=== PATIENT | female | born 2000 | race American Indian/Alaskan Native ===

== ENCOUNTER 2018-08-31 14:19 | Inpatient (IN) | payer MEDICAID ==
--- NOTE | 2018-08-31 18:03 | Ultrasound Report ---
ULTRASOUND BIOPHYSICAL PROFILE INDICATION / CLINICAL INFORMATION: post dates. COMPARISON: None available. FINDINGS: BREATHING MOVEMENT = 2 GROSS BODY MOVEMENT = 2 TONE = 2 QUALITATIVE AMNIOTIC FLUID VOLUME = 2 TOTAL BIOPHYSICAL SCORE = 10/04 AMNIOTIC FLUID INDEX (cm) = 8.6 PRESENTATION: Cephalic. HEART RATE (beats per minute): 154 IMPRESSION: 1. biophysical profile = 10/04 Signer Name: Horacio Abbasi MD Signed: 08/31/2018 5:59 PM Workstation Name: [place] [id number]
--- NOTE | 2018-08-31 18:03 | Ultrasound Report ---
US OB limited INDICATION: post dates. COMPARISON: None available. FINDINGS: The amniotic fluid index appears normal, measuring 8.6 cm total. heart rate measures 154 bpm. F etal position is cephalic. IMPRESSION: Normal MANJEET. Signer Name: Horacio Abbasi MD Signed: 08/31/2018 5:58 PM Workstation Name: [id number]
[2018-08-31] MEDS ORDERED: BRETHINE SUB-Q PRN (21:25)
[2018-08-31] MEDS ORDERED: BRETHINE IVP PRN (21:25)
[2018-08-31] MEDS ORDERED: XYLOCAINE 2% INFILTRATI ONE (21:25)
--- NOTE | 2018-08-31 21:38 | History and Physical Report ---
History of Present Illness Date of examination: 08/31/18 Date of admission: 08/31/2018 Chief complaint: Elevated blood pressure History of present illness: 18 year old female at 40 weeks, 2 days gestation being admitted for elevated blood pressures past her due date. Patient has received care at [facility] and records were able to be accessed. LMP 11/07/17. EDC 08/29/18. significant for the following: transfer-in from [place]. labs are as follows: AB+, antibody screen negative, rubella immune, HIV negative, RPR nonreactive, hepatitis B surface antigen negative, quad screen negative, GC negative, CT negative, trichomonas negative, GBS negative, 1 hour sugar test 110, urine culture negative. Past History Past Medical History: no pertinent history Past Surgical History: D&C (after molar ), other (wisdom teeth extraction) [facility] History: denies: abnormal PAP smear, chlamydia, gonorrhea, hepatitis B, hepatitis C, herpes, HIV, syphilis, trichomonas Family/Genetic History: none Social history: single, lives with family, full code. denies: smoking, alcohol abuse, IV drug use - Obstetrical History Expected Date of Delivery: 08/29/18 Actual Gestation: 40 Week(s) 2 Day(s) : 2 Para: 0 Hx # Term Pregnancies: 0 Number of Pregnancies: 0 Spontaneous Abortions: 1 Induced : 0 Number of Living Children: 0 Medications and Allergies Allergies Allergy/AdvReac Type Severity Reaction Status Date / Time No Known Allergies Allergy Verified 08/31/18 11:37 Active Meds: Active Medications Ephedrine Sulfate (Ephedrine Sulfate) 10 mg IV Q2M PRN PRN Reason: Hypotension Oxytocin/Sodium Chloride (Pitocin/Ns 20 Unit/1000ml Drip) 20 units in 1,000 mls @ 125 mls/hr IV DIRECT RUBIN Oxytocin/Sodium Chloride (Pitocin/Ns 30 Unit/500ml) 30 units in 500 mls @ 0 mls/hr IV TITR RUBIN; Protocol Lactated Ringer's (Lactated Ringers) 1,000 mls @ 125 mls/hr IV DIRECT RUBIN Lidocaine (Xylocaine 2%) 20 ml INFILTRATI ONCE ONE Stop: 08/31/18 21:26 Terbutaline Sulfate (Brethine) 0.25 mg SUB-Q ONCE PRN PRN Reason: Hyperstimulation/Hypertonicity Terbutaline Sulfate (Brethine) 0.25 mg IVP ONCE PRN PRN Reason: Hyperstimulation/Hypertonicity Review of Systems All systems: negative (irregular mild contractions) - Vital Signs Vital signs: Vital Signs Pulse Pulse Ox 77 96 08/31/18 16:46 08/31/18 16:46 Temp Pulse Resp BP Pulse Ox 99.1 F 81 20 139/91 99 08/31/18 16:48 08/31/18 21:36 08/31/18 16:48 08/31/18 21:31 08/31/18 21:36 - Physical Exam Abdomen: Positive: normal appearance, soft. Negative: distention, tenderness, guarding, rigidity Genitourinary (Female): Positive: normal external genitalia, normal perenium. Negative: perineal/vulvar lesions Vagina: Positive: normal moisture Uterus: Positive: enlarged. Negative: tender Anus/Rectum: Positive: normal perianal skin Extremities: Positive: normal. Negative: tenderness - Obstetrical FHR: category 1 Uterine Contraction Monitor Mode: External Cervical Dilatation: 1.5 Cervical Effacement Percentage: 50 station: -4 Uterine Contraction Pattern: Irregular Uterine Contraction Intensity: Mild Results Result Diagrams: 08/31/18 21:55 08/31/18 21:54 All other labs normal. Assessment and Plan A: at 40 2/7 weeks gestation. Elevated blood pressure. GBS negative. P: Admit. Preeclamptic labs. Continuous EFM. Pitocin induction of labor. Discussed with patient risks and benefits of Pitocin induction of labor. Patient consented to Pitocin induction of labor. See orders.
[2018-08-31 22:31] LABS: Basophils % (Auto) 0.2 % (0.0-1.8); Eosinophils % (Auto) 0.4 % (0.0-4.3); Hematocrit 33.1 % (30.3-42.9); Hemoglobin 11.1 gm/dl (10.1-14.3); Lymphocytes # (Auto) 3.3 K/mm3 (1.2-5.4); Lymphocytes % (Auto) 45.1 % (13.4-35.0); Mean Corpuscular HGB Conc 34 % (30-34); Mean Corpuscular Volume 93 fl (79-97); Monocytes # (Auto) 0.6 K/mm3 (0.0-0.8); Monocytes % (Auto) 7.7 % (0.0-7.3); Platelet Count 334 K/mm3 (140-440); Red Blood Count 3.57 M/mm3 (3.65-5.03); Red Cell Distribution Width 13.7 % (13.2-15.2)
[2018-08-31 22:46] LABS: Alanine Aminotransferase 11 units/L (7-56); Albumin 3.4 g/dL (3.9-5); BUN/Creatinine Ratio 10; Blood Urea Nitrogen 7 mg/dL (7-17); Calcium 9.2 mg/dL (8.4-10.2); Hemolysis Index 0; Uric Acid 5.4 mg/dL (3.5-7.6)
[2018-09-01] MEDS: PITOCin/NS 30 UNIT/500ML 30 UNITS/500 ML BAG IV SCH ×2 (00:49→19:26)
[2018-09-01] MEDS: LACTATED RINGERS 1,000 ML IV SCH ×2 (00:51→15:06)
[2018-09-01 07:50] LABS: Bacteria,Urine 1+ /HPF (Negative); Bilirubin,Urine NEG (Negative); Blood,Urine NEG (Negative); Color,Urine Yellow (Yellow); Protein,Urine <15 mg/dL mg/dL (Negative)
--- NOTE | 2018-09-01 07:59 | Progress Note ---
Assessment and Plan A: at 40 weeks, 3 days gestation. Elevated blood pressure. Induction of labor. GBS negative. P: Continuous EFM. Induction of labor with Pitocin. Subjective - Subjective Date of service: 09/01/18 Principal diagnosis: at 40 weeks, 3 days gestation; elevated blood pressure Interval history: IOL due to elevated blood pressures at 40 weeks, 3 days gestation. Patient denies headache, visual disturbance, or swelling. Had low dose Pitocin overnight for cervical ripening. Patient denies vaginal bleeding or leaking of fluid. Patient reports active movement. Patient reports: movement normal, contractions, no new complaints, no loss of fluid, no vaginal bleeding Objective - Vital Signs Vital Signs: Vital Signs - 12hr 08/31/18 08/31/18 08/31/18 20:00 20:01 20:05 Temperature Pulse Rate 78 81 82 Respiratory Rate Blood Pressure 140/86 O2 Sat by Pulse 97 98 Oximetry 08/31/18 08/31/18 08/31/18 20:06 20:10 20:12 Temperature Pulse Rate 77 81 82 Respiratory Rate Blood Pressure 147/93 140/85 O2 Sat by Pulse 98 Oximetry 08/31/18 08/31/18 08/31/18 20:15 20:16 20:20 Temperature Pulse Rate 76 77 86 Respiratory Rate Blood Pressure 142/89 O2 Sat by Pulse 98 99 Oximetry 08/31/18 08/31/18 08/31/18 20:22 20:25 20:27 Temperature Pulse Rate 90 88 74 Respiratory Rate Blood Pressure 162/81 146/88 O2 Sat by Pulse 97 Oximetry 08/31/18 08/31/18 08/31/18 20:30 20:31 20:35 Temperature Pulse Rate 84 80 96 H Respiratory Rate Blood Pressure 152/89 O2 Sat by Pulse 98 100 Oximetry 08/31/18 08/31/18 08/31/18 20:37 20:41 20:42 Temperature Pulse Rate 193 H 101 H 106 H Respiratory Rate Blood Pressure 143/99 160/101 O2 Sat by Pulse 99 Oximetry 08/31/18 08/31/18 08/31/18 20:46 20:47 20:51 Temperature Pulse Rate 94 H 92 H 89 Respiratory Rate Blood Pressure 154/85 O2 Sat by Pulse 100 90 98 Oximetry 08/31/18 08/31/18 08/31/18 20:52 20:56 20:58 Temperature Pulse Rate 90 82 75 Respiratory Rate Blood Pressure 156/88 135/91 O2 Sat by Pulse 100 Oximetry 08/31/18 08/31/18 08/31/18 21:01 21:02 21:06 Temperature Pulse Rate 73 71 79 Respiratory Rate Blood Pressure 142/86 144/88 O2 Sat by Pulse 99 99 Oximetry 08/31/18 08/31/18 08/31/18 21:11 21:12 21:16 Temperature Pulse Rate 76 74 78 Respiratory Rate Blood Pressure 140/86 O2 Sat by Pulse 100 85 Oximetry 08/31/18 08/31/18 08/31/18 21:17 21:21 21:22 Temperature Pulse Rate 74 75 78 Respiratory Rate Blood Pressure 135/88 137/90 O2 Sat by Pulse 94 93 Oximetry 08/31/18 08/31/18 08/31/18 21:26 21:27 21:31 Temperature Pulse Rate 76 73 73 Respiratory Rate Blood Pressure 135/89 139/91 O2 Sat by Pulse 94 93 97 Oximetry 08/31/18 08/31/18 08/31/18 21:32 21:36 21:37 Temperature Pulse Rate 76 81 80 Respiratory Rate Blood Pressure 132/97 O2 Sat by Pulse 93 99 Oximetry 08/31/18 08/31/18 08/31/18 21:40 21:42 21:43 Temperature Pulse Rate 78 81 81 Respiratory Rate Blood Pressure 133/95 O2 Sat by Pulse 90 99 Oximetry 08/31/18 08/31/18 08/31/18 21:47 21:52 21:57 Temperature Pulse Rate 71 87 85 Respiratory Rate Blood Pressure 139/93 139/88 154/81 O2 Sat by Pulse 99 99 98 Oximetry 08/31/18 08/31/18 08/31/18 22:02 22:24 22:29 Temperature Pulse Rate 79 91 H 85 Respiratory Rate Blood Pressure 142/78 O2 Sat by Pulse 97 98 97 Oximetry 08/31/18 08/31/18 08/31/18 22:34 22:38 22:44 Temperature Pulse Rate 80 87 85 Respiratory Rate Blood Pressure O2 Sat by Pulse 97 98 99 Oximetry 08/31/18 08/31/18 08/31/18 22:49 22:54 22:59 Temperature Pulse Rate 83 79 76 Respiratory Rate Blood Pressure O2 Sat by Pulse 98 96 97 Oximetry 08/31/18 08/31/18 08/31/18 23:04 23:09 23:13 Temperature Pulse Rate 78 79 71 Respiratory Rate Blood Pressure O2 Sat by Pulse 97 97 97 Oximetry 08/31/18 08/31/18 08/31/18 23:19 23:24 23:29 Temperature Pulse Rate 75 92 H 92 H Respiratory Rate Blood Pressure O2 Sat by Pulse 98 96 95 Oximetry 08/31/18 08/31/18 08/31/18 23:34 23:39 23:44 Temperature Pulse Rate 74 80 82 Respiratory Rate Blood Pressure O2 Sat by Pulse 98 97 97 Oximetry 08/31/18 08/31/18 08/31/18 23:49 23:50 23:53 Temperature Pulse Rate 89 77 90 Respiratory Rate Blood Pressure 134/83 O2 Sat by Pulse 97 98 Oximetry 08/31/18 09/01/18 09/01/18 23:59 00:04 00:38 Temperature Pulse Rate 77 84 85 Respiratory Rate Blood Pressure 143/90 O2 Sat by Pulse 97 97 Oximetry 09/01/18 09/01/18 09/01/18 00:52 01:03 01:08 Temperature 97.5 F L Pulse Rate 77 78 Respiratory 18 Rate Blood Pressure 136/88 139/88 O2 Sat by Pulse Oximetry 09/01/18 09/01/18 09/01/18 02:19 03:19 04:19 Temperature Pulse Rate 97 H 97 H 95 H Respiratory Rate Blood Pressure 132/68 119/60 111/64 O2 Sat by Pulse Oximetry 09/01/18 09/01/18 09/01/18 05:00 05:18 06:18 Temperature 97.5 F L Pulse Rate 71 76 Respiratory 16 Rate Blood Pressure 106/59 116/64 O2 Sat by Pulse Oximetry - Exam Abdomen: Present: normal appearance, soft. Absent: distention, tenderness, guarding, rigidity Uterus: Present: normal, fundal height above umbilicus FHR: category 1 Uterine Contraction Monitor Mode: External Uterine Contraction Pattern: Irregular Uterine Contraction Intensity: Mild Extremities: normal - Labs Labs: Abnormal Labs 08/31/18 08/31/18 21:54 21:55 RBC 3.57 L Lymph % (Auto) 45.1 H Nobles % (Auto) 7.7 H Carbon Dioxide 21 L Alkaline Phosphatase 426 H Lactate Dehydrogenase 184 H Albumin 3.4 L Laboratory Results - last 24 hr 08/31/18 08/31/1819 21:50 21:54 21:55 WBC 7.3 RBC 3.57 L Hgb 11.1 Hct 33.1 MCV 93 MCH 31 MCHC 34 RDW 13.7 Plt Count 334 Lymph % (Auto) 45.1 H [place]les % (Auto) 7.7 H Eos % (Auto) 0.4 Baso % (Auto) 0.2 Lymph # 3.3 Nobles # 0.6 Eos # 0.0 Baso # 0.0 Seg Neutrophils % 46.6 Seg Neutrophils # 3.4 Sodium 137 Potassium 3.9 Chloride 103.1 Carbon Dioxide 21 L Anion Gap 17 BUN 7 Creatinine 0.7 Estimated GFR > 60 BUN/Creatinine Ratio 10 Glucose 72 Uric Acid 5.4 Calcium 9.2 Total Bilirubin 0.40 AST 18 ALT 11 Alkaline Phosphatase 426 H Lactate Dehydrogenase 184 H Total Protein 6.9 Albumin 3.4 L Albumin/Globulin Ratio 1.0 Urine Color Urine Turbidity Urine pH Ur Specific Mcdonough Urine Protein Urine Glucose (UA) Urine Ketones Urine Blood Urine Nitrite Urine Bilirubin Urine Urobilinogen Ur Leukocyte Esterase Urine WBC (Auto) Urine RBC (Auto) U Epithel Cells (Auto) Urine Bacteria (Auto) Blood Type AB POSITIVE Antibody Screen Negative 09/01/18 07:21 WBC RBC Hgb Hct MCV MCH MCHC RDW Plt Count Lymph % (Auto) Nobles % (Auto) Eos % (Auto) Baso % (Auto) Lymph # Nobles # Eos # Baso # Seg Neutrophils % Seg Neutrophils # Sodium Potassium Chloride Carbon Dioxide Anion Gap BUN Creatinine Estimated GFR BUN/Creatinine Ratio Glucose Uric Acid Calcium Total Bilirubin AST ALT Alkaline Phosphatase Lactate Dehydrogenase Total Protein Albumin Albumin/Globulin Ratio Urine Color Yellow Urine Turbidity Clear Urine pH 6.0 Ur Specific Mcdonough 1.015 Urine Protein <15 mg/dl Urine Glucose (UA) Neg Urine Ketones Tr Urine Blood Neg Urine Nitrite Neg Urine Bilirubin Neg Urine Urobilinogen 2.0 Ur Leukocyte Esterase Sm Urine WBC (Auto) 3.0 Urine RBC (Auto) 1.0 U Epithel Cells (Auto) 4.0 Urine Bacteria (Auto) 1+ Blood Type Antibody Screen
--- NOTE | 2018-09-01 15:49 | Event Note ---
Date: 09/01/18 SVE 2-3.
[2018-09-01] MEDS: PITOCin/NS 20 UNIT/1000ML DRIP 20 UNITS/1,000 ML BAG IV SCH (19:24)
[2018-09-02] MEDS ORDERED: LACTATED RINGERS 1,000 ML IV SCH (01:00)
[2018-09-02] MEDS ORDERED: SUBLIMAZE IV ONE ×3 (05:28→12:05)
[2018-09-02] MEDS ORDERED: APRESOLINE IV ONE (05:28)
--- NOTE | 2018-09-02 05:47 | Event Note ---
Date: 09/02/18 SVE /-2. Patient denies headache, visual disturbance, nausea or vomiting, epigastric pain. Several elevated blood pressures noted. Hydralazine ordered. Fentanyl ordered for pain. Category 1 heart rate tracing.
[2018-09-02] MEDS ORDERED: ZOFRAN ONE (10:00)
--- NOTE | 2018-09-02 11:06 | Progress Note ---
Assessment and Plan A: at 40 weeks, 4 days gestation. Elevated blood pressure. P: Continue Pitocin induction of labor. Labetalol 200 mg po BID. Continuous EFM. Consulted with Dr. Jensen re: patient's BP elevations and he reviewed BPs on patient's chart. Subjective - Subjective Date of service: 09/02/18 Principal diagnosis: at 40 weeks, 4 days gestation; elevated blood pressure Interval history: IOL due to elevated blood pressures at 40 weeks, 4 days gestation. Patient denies headache, visual disturbance, or swelling. Patient denies vaginal bleeding or leaking of fluid. Patient reports active movement. Labetalol po has been ordered for patient. Patient reports: movement normal, contractions, no new complaints, no loss of fluid, no vaginal bleeding Objective - Vital Signs Vital Signs: Vital Signs - 12hr 09/01/18 09/02/18 09/02/18 23:18 00:20 01:18 Pulse Rate 75 76 70 Blood Pressure 131/80 137/65 119/64 09/02/18 09/02/18 09/02/18 02:19 03:18 04:19 Pulse Rate 75 68 73 Blood Pressure 122/65 128/69 152/102 09/02/18 09/02/18 09/02/18 04:59 05:20 05:24 Pulse Rate 72 69 75 Blood Pressure 168/96 163/103 157/93 09/02/18 09/02/18 09/02/18 05:35 05:47 05:57 Pulse Rate 83 80 69 Blood Pressure 141/73 139/71 141/67 09/02/18 09/02/18 09/02/18 06:08 06:18 06:37 Pulse Rate 67 67 72 Blood Pressure 128/66 123/74 129/60 09/02/18 09/02/18 09/02/18 06:56 06:58 07:07 Pulse Rate 68 72 75 Blood Pressure 134/76 136/73 150/79 09/02/18 09/02/18 09/02/18 07:17 07:35 07:48 Pulse Rate 76 64 74 Blood Pressure 135/70 123/68 123/65 09/02/18 09/02/18 09/02/18 08:04 08:19 08:33 Pulse Rate 71 76 73 Blood Pressure 120/59 142/69 146/80 09/02/18 09/02/1819 08:50 09:03 09:19 Pulse Rate 88 78 82 Blood Pressure 146/78 146/84 150/84 09/02/18 09/02/18 09/02/18 09:33 09:49 09:52 Pulse Rate 84 76 67 Blood Pressure 145/97 162/87 158/88 09/02/18 09/02/18 09/02/18 10:04 10:33 10:49 Pulse Rate 116 H 69 81 Blood Pressure 131/92 136/82 150/86 - Exam Abdomen: Present: normal appearance, soft. Absent: distention, tenderness, guarding, rigidity Uterus: Present: normal, fundal height above umbilicus. Absent: tenderness FHR: category 1 Uterine Contraction Monitor Mode: External Cervical Dilatation: 3 Cervical Effacement Percentage: 95 station: -2 Uterine Contraction Pattern: Regular Uterine Contraction Intensity: Moderate Extremities: normal - Labs Labs: Abnormal Labs 08/31/18 08/31/18 21:54 21:55 RBC 3.57 L Lymph % (Auto) 45.1 H Braxton % (Auto) 7.7 H Carbon Dioxide 21 L Alkaline Phosphatase 426 H Lactate Dehydrogenase 184 H Albumin 3.4 L Laboratory Results - last 24 hr 08/31/18 21:43 RPR Nonreactive
--- NOTE | 2018-09-02 14:35 | Event Note ---
Date: 09/02/18 SVE 4.5/95/-1/BBOW. Patient requests epidural.
[2018-09-02] MEDS ORDERED: MARCAINE 0.25% INFILTRATI ONE (15:20)
[2018-09-02] MEDS ORDERED: SUBLIMAZE ONE (15:20)
[2018-09-02] MEDS ORDERED: NARCAN 2 MG/2 ML IV PRN (15:44)
--- NOTE | 2018-09-02 15:44 | Anesthesia Consultation ---
Anesthesia Consult and Med Hx Date of service: 09/02/18 - Airway Anesthetic Teeth Evaluation: Good ROM Head & Neck: Adequate Mental/Hyoid Distance: Adequate Mallampati Class: Class II Intubation Access Assessment: Good - Pulmonary Exam CTA: Yes - Cardiac Exam Cardiac Exam: RRR - Pre-Operative Health Status ASA Pre-Surgery Classification: ASA2 Proposed Anesthetic Plan: Epidural - Pulmonary Hx Asthma: No - Cardiovascular System Hx Hypertension: No - Central Nervous System Hx Seizures: No Hx Psychiatric Problems: No - Endocrine Hx Renal Disease: No Hx Hypothyroidism: No Hx Hyperthyroidism: No - Hematic Hx Anemia: No Hx Sickle Cell Disease: No - Other Systems Hx Alcohol Use: No
[2018-09-02] MEDS: fentaNYL-BUPIV 2 MCG/ML-0.125% 200 MCG/100 ML BAG EPIDURAL SCH ×2 (16:10→23:03)
[2018-09-02] MEDS ORDERED: ZOFRAN IV ONE (18:17)
--- NOTE | 2018-09-02 18:23 | Event Note ---
Date: 09/02/18 SVE 7/100/-1/bulging forebag. Pt. with nausea and vomiting, one episode. IV Zofran ordered. Patient denies headache or visual disturbance. Repeat labs ordered. Advised nurse to increase Pitocin as she has only gone up to 4 milliunits per minute. Category 1 heart rate tracing.
[2018-09-02] MEDS: NORMODYNE PO SCH ×2 (18:37→22:35)
[2018-09-02 19:47] LABS: Alanine Aminotransferase 10 units/L (7-56); Albumin 3.5 g/dL (3.9-5); BUN/Creatinine Ratio 7; Blood Urea Nitrogen 5 mg/dL (7-17); Calcium 9.3 mg/dL (8.4-10.2); Hemolysis Index 0
[2018-09-02] MEDS ORDERED: TYLENOL PO ONE (23:10)
[2018-09-02] MEDS ORDERED: AMPICILLIN/NS 2 GM/100 ML 2 GM/100 ML BAG IV ONE (23:11)
--- NOTE | 2018-09-03 00:16 | Event Note ---
Date: 09/03/18 Cervix is 9 cm and fetus is at 0 station. Maternal temp. 100.1. Tylenol po ordered. Ampicillin and Gentamicin ordered. FHR normal baseline rate with moderate variability and no decelerations. Consulted with Dr. Jensen re: patient, prolonged IOL, cervical exam, maternal temperature, and interventions taken. Dr. Jensen states it is OK to proceed with labor and attempt vaginal as long as no tachycardia. Discussed this plan with patient and family.
[2018-09-03] MEDS ORDERED: GENTAMICIN/NS 100 MG/100 ML 100 MG/100 ML BAG IV SCH (01:00)
[2018-09-03] MEDS: PITOCin/NS 20 UNIT/1000ML DRIP 20 UNITS/1,000 ML BAG IV SCH ×2 (02:13→03:32)
[2018-09-03] MEDS ORDERED: DULCOLAX PR PRN (02:34)
[2018-09-03] MEDS ORDERED: TUCKS PAD TP PRN (02:34)
[2018-09-03] MEDS ORDERED: LANSINOH TP PRN (02:34)
[2018-09-03] MEDS ORDERED: MILK OF MAGNESIA PO PRN (02:34)
[2018-09-03] MEDS ORDERED: NORCO 5/325 PO PRN (02:34)
--- NOTE | 2018-09-03 02:53 | Procedure Note ---
OB Delivery Note - Delivery Date of Delivery: 09/03/18 Surgeon: MONO JENSEN Computer Terminal Operator: VENUS KINCAID Estimated blood loss: other (250 cc) - Vaginal Delivery presentation: vertex Delivery position: OA Intrapartum events: mult.variable deceleratio Delivery induction: AROM Delivery monitor: external FHT, external uterine Route of delivery: vacuum extraction Indicators for instrumentation: nonreassuring FHR tracing Delivery placenta: spontaneous Delivery cord: 3 umbilical vessels Episiotomy: midline Delivery laceration: 2nd degree Delivery repair: vicryl Anesthesia: epidural Delivery comments: Vacuum assisted vaginal delivery of liveborn male infant weighing 6 lb[address] 7.[address] Wes Jensen at 01:52 due to deep variable FHR decelerations with pushing. Baby placed skin to skin with mom immediately after delivery. 3 vessel cord double clamped and cut (cut by FOB). Spontaneous delivery of intact placenta and membranes at 01:55. Pitocin to IV fluids after delivery of placenta. Fundus firm and midline. EBL 250 cc. 2nd degree midline episiotomy repaired with 2-0 vicryl. No other lacerations noted. Vaginal sweep negative. Sponge count correct. Mother and baby stable in birthing room.
[2018-09-03] MEDS ORDERED: SODIUM CHLORIDE FLUSH SYRINGE 10 ML IV PRN (03:00)
[2018-09-03] MEDS ORDERED: AMPICILLIN/NS 1 GM/50 ML 1 GM/50 ML BAG IV SCH (03:19)
[2018-09-03] MEDS ORDERED: PITOCin/NS 20 UNIT/1000ML DRIP 20,000 MILLIUNITS/1,000 ML BAG IV ONE (03:34)
[2018-09-03] MEDS: IBUPROFEN PO SCH ×4 (05:04→23:46)
[2018-09-03] MEDS: AMPICILLIN/NS 2 GM/100 ML 2 GM/100 ML BAG IV SCH ×2 (05:54→12:30)
--- NOTE | 2018-09-03 06:40 | Post Anesthesia Evaluation ---
- Post Anesthesia Evaluation Patient Participated: Yes Airway Patent: Yes Stable Respiratory Function: Yes Nausea/Vomiting: No Temp > 96.8F: Yes Pain Manageable: Yes Adequeate Hydration: Yes Anesthesia Complications: No Block Receding Appropriately: Yes Patient on Ventilator: No
[2018-09-03] MEDS: NORMODYNE PO SCH ×2 (10:00→21:36)
[2018-09-03 11:18] LABS: Hematocrit 29.1 % (30.3-42.9); Hemoglobin 9.7 gm/dl (10.1-14.3); Mean Corpuscular HGB Conc 33 % (30-34); Mean Corpuscular Volume 92 fl (79-97); Platelet Count 289 K/mm3 (140-440); Red Blood Count 3.17 M/mm3 (3.65-5.03)
[2018-09-03 13:34] LABS: Basophils % (Manual) 0 % (0.0-1.8); Eosinophils % (Manual) 0 % (0.0-4.3); Platelet Estimate Consistent w Auto; RBC Morphology Normal; Total Cells Counted 100
[2018-09-03 23:37] LABS: Basophils % (Auto) 0.3 % (0.0-1.8); Eosinophils % (Auto) 0.2 % (0.0-4.3); Hematocrit 27.5 % (30.3-42.9); Hemoglobin 9.2 gm/dl (10.1-14.3); Lymphocytes # (Auto) 4.1 K/mm3 (1.2-5.4); Lymphocytes % (Auto) 23.6 % (13.4-35.0); Mean Corpuscular HGB Conc 33 % (30-34); Mean Corpuscular Volume 93 fl (79-97); Monocytes # (Auto) 1.2 K/mm3 (0.0-0.8); Platelet Count 277 K/mm3 (140-440); Red Blood Count 2.97 M/mm3 (3.65-5.03); Red Cell Distribution Width 14.1 % (13.2-15.2)
[2018-09-04] MEDS: TRIMOX PO SCH ×2 (00:50→05:55)
[2018-09-04] MEDS ORDERED: CLEOCIN PO SCH (01:00)
[2018-09-04] MEDS: IBUPROFEN PO SCH ×4 (05:55→23:40)
[2018-09-04] MEDS ORDERED: BOOSTRIX IM ONE (06:00)
--- NOTE | 2018-09-04 09:45 | Progress Note ---
Assessment and Plan - Patient Problems (1) Vacuum extraction, delivered, current hospitalization Current Visit: Yes Status: Acute Plan to address problem: Continue routine PP orders Keep laceration site dry and intact Anticipate d/c home in 24 hours (2) Anemia Current Visit: Yes Status: Acute Qualifiers: Anemia type: other cause Other causes of anemia: acute posthemorrhagic Qualified Code(s): D62 - Acute posthemorrhagic anemia Plan to address problem: Ferrous sulfate 325mg po BID Increase iron rich foods Continue daily oral iron supplementation after d/c home Subjective - Subjective Date of service: 09/04/18 Principal diagnosis: ; Anemia Interval history: See admission H & P, OB delivery summary and PP progress notes Patient reports: appetite normal, voiding normally, pain well controlled, flatus, ambulating normally, no bowel movement [place]: doing well, bottle feeding (and , working on improving latch) Objective - Vital Signs Latest vital signs: Vital Signs Temp Pulse Resp BP BP Pulse Ox 09/04/18 08:00 98 F 73 18 117/65 97 09/04/18 05:55 16 09/04/18 00:35 97.8 F 73 18 111/58 97 09/03/18 23:46 20 09/03/18 21:36 76 132/86 09/03/18 17:18 97.9 F 77 18 143/72 09/03/18 12:47 99.1 F 92 H 18 112/48 09/03/18 10:00 115/57 Intake and Output 09/03/18 09/04/18 09/04/18 23:59 07:59 15:59 Intake Total 480 Balance 480 Intake: Oral 480 Other: Total, Intake Amount 480 - Exam Breasts: Present: normal Cardiovascular: Present: Regular rate Lungs: Present: Normal air movement Abdomen: Present: soft, normal bowel sounds Vulva: both: laceration/episiotomy (2 nd degree perineal laceration, healing as expected) Uterus: Present: firm, fundal height below umbilicus (U-1) Extremities: Present: normal Deep Tendon Reflex Grade: Normal +2 - Labs Labs: Abnormal lab results 09/03/18 09/03/18 Range/Units 10:50 22:53 WBC 20.9 H 17.3 H (4.5-11.0) K/mm3 RBC 3.17 L 2.97 L (3.65-5.03) M/mm3 Hgb 9.7 L 9.2 L (10.1-14.3) gm/dl Hct 29.1 L 27.5 L (30.3-42.9) % [place] # 1.2 H (0.0-0.8) K/mm3 Seg Neuts % (Manual) 85.0 H (40.0-70.0) % Lymphocytes % (Manual) 10.0 L (13.4-35.0) % Nucleated RBC % 1.0 H (0.0-0.9) % Seg Neutrophils # 11.9 H (1.8-7.7) K/mm3 Seg Neutrophils # Man 17.8 H (1.8-7.7) K/mm3 Monocytes # (Manual) 1.0 H (0.0-0.8) K/mm3
[2018-09-04] MEDS: FEOSOL PO SCH ×2 (10:07→21:52)
[2018-09-04] MEDS: NORMODYNE PO SCH ×2 (10:07→21:52)
[2018-09-05] MEDS: IBUPROFEN PO SCH ×5 (05:48→21:05)
--- NOTE | 2018-09-05 06:58 | Progress Note ---
Assessment and Plan - Patient Problems (1) Vacuum extraction, delivered, current hospitalization Current Visit: Yes Status: Acute Plan to address problem: Continue routine PP orders Keep laceration site dry and intact D/C home later today (2) Anemia Current Visit: Yes Status: Acute Qualifiers: Anemia type: other cause Other causes of anemia: acute posthemorrhagic Qualified Code(s): D62 - Acute posthemorrhagic anemia Plan to address problem: Continue ferrous sulfate 325mg po BID Increase iron rich foods Continue daily oral iron supplementation after d/c home Subjective - Subjective Date of service: 09/05/18 Principal diagnosis: ; Anemia Interval history: See admission H & P, OB delivery summary and PP progress notes Patient reports: appetite normal, voiding normally, pain well controlled, flatus, ambulating normally [place]: doing well, other (Bili elevated, repeat level pending), bottle feeding (and ) Objective - Vital Signs Latest vital signs: Vital Signs Temp Pulse Resp BP BP Pulse Ox 09/05/18 05:48 18 09/05/18 00:19 98.2 F 76 20 135/71 96 09/04/18 23:40 20 09/04/18 21:52 88 138/76 09/04/18 15:44 98.2 F 65 18 126/57 100 09/04/18 11:23 97.8 F 76 18 120/48 98 09/04/18 10:07 117/65 09/04/18 08:00 98 F 73 18 117/65 97 Intake and Output 09/04/18 09/04/18 09/05/18 15:59 23:59 07:59 Intake Total 240 240 Balance 240 240 Intake: Oral 240 240 Other: Total, Intake Amount 240 240 # Voids Void 1 1 - Exam Breasts: Present: deferred Cardiovascular: Present: Regular rate Lungs: Present: Normal air movement Abdomen: Present: soft, normal bowel sounds Uterus: Present: firm, fundal height below umbilicus (U-1) Extremities: Present: normal Deep Tendon Reflex Grade: Normal +2 Incision: Present: other (2nd degree laceration, healing as expected)
--- NOTE | 2018-09-05 07:05 | Discharge Summary ---
Providers - Providers Date of Admission: 08/31/18 23:29 Date of discharge: 09/05/18 (1500) Attending physician: DERRICK MUELLER MD Primary care physician: DERRICK MUELLER MD Hospitalization Reason for admission: active labor, IUP at term Delivery: vacuum extraction Episiotomy: none Laceration: 2nd degree (with repair) Incision: dry, intact Other procedures: none complications: none Discharge diagnosis: IUP at term delivered, other (Anemia) baby: male Hospital course: See admission H & P, OB delivery summary and PP progress notes Condition at discharge: Good Disposition: DC-01 TO HOME OR SELFCARE - Discharge Diagnoses (1) Vacuum extraction, delivered, current hospitalization Status: Acute (2) Anemia Status: Acute Qualifiers: Anemia type: other cause Other causes of anemia: acute posthemorrhagic Qualified Code(s): D62 - Acute posthemorrhagic anemia Plan - Discharge Medications Prescriptions: Ferrous Sulfate [Ferrous Sulfate 324 MG] 324 mg PO BID 30 Days #60 tab - Provider Discharge Summary Activity: routine, no sex for 6 weeks, no heavy lifting 4 weeks, no strenuous exercise Diet: routine (with iron rich foods) Instructions: routine Additional instructions: [] Smoking cessation referral if applicable(refer to patient education folder for contact #) [] Refer to [facility]'s [facility] Booklet Call your doctor immediately for: * Fever > 100.5 * Heavy vaginal bleeding ( >1 pad per hour) * Severe persistent headache * Shortness of breath * Reddened, hot, painful area to leg or breast * Drainage or odor from incision. * Keep incision clean and dry at all times and follow doctor's instructions regarding bathing/showering * Continue daily oral iron replacement - Follow up plan Follow up: DERRICK MUELLER MD [Primary Care Provider] - 6 Weeks
[2018-09-05] MEDS: FEOSOL PO SCH ×2 (10:08→22:50)
[2018-09-05] MEDS: NORMODYNE PO SCH ×2 (10:08→22:49)
[2018-09-05] MEDS: NORVASC PO SCH (12:46)
[2018-09-05 15:52] LABS: Hematocrit 26.5 % (30.3-42.9); Hemoglobin 8.8 gm/dl (10.1-14.3); Mean Corpuscular HGB Conc 33 % (30-34); Mean Corpuscular Volume 93 fl (79-97); Platelet Count 284 K/mm3 (140-440); Red Blood Count 2.84 M/mm3 (3.65-5.03); Red Cell Distribution Width 14.3 % (13.2-15.2)
[2018-09-05 16:12] LABS: Alanine Aminotransferase 14 units/L (7-56); Uric Acid 5.1 mg/dL (3.5-7.6)
[2018-09-06] MEDS: IBUPROFEN PO SCH (02:50)
[2018-09-06 08:17] VITALS: BP 180/90
[2018-09-06] MEDS: NORMODYNE PO SCH (08:38)
[2018-09-06] MEDS: NORVASC PO SCH (08:39)
== END 2018-09-06 09:10 | disposition home or self-care (01) | DRG 775 ==
LOC: TRG 14:19 → LD 23:29 → OB 09-03 03:05
PROVIDERS: ADMIT Obstetrics & Gynecology; ATTEND Obstetrics & Gynecology
PROC: 3E0P7VZ Introduction of Hormone into Female Reproductive, Via Natural or Artificial Opening (ICD-10-PCS; 2018-08-31)
PROC: 10D07Z6 Extraction of Products of Conception, Vacuum, Via Natural or Artificial Opening (ICD-10-PCS; principal; 2018-09-03)
PROC: 0KQM0ZZ Repair Perineum Muscle, Open Approach (ICD-10-PCS; 2018-09-03)
PROC: 10907ZC Drainage of Amniotic Fluid, Therapeutic from Products of Conception, Via Natural or Artificial Opening (ICD-10-PCS; 2018-09-03)
PROC: 3E0R3BZ Introduction of Anesthetic Agent into Spinal Canal, Percutaneous Approach (ICD-10-PCS; 2018-09-03)
PROC: 00HU33Z Insertion of Infusion Device into Spinal Canal, Percutaneous Approach (ICD-10-PCS; 2018-09-03)
PROC: 0W8NXZZ Division of Female Perineum, External Approach (ICD-10-PCS; 2018-09-03)
PROC: 3E0234Z Introduction of Serum, Toxoid and Vaccine into Muscle, Percutaneous Approach (ICD-10-PCS; 2018-09-04)
DX: O76 Abnormality in fetal heart rate and rhythm complicating labor and delivery (principal); Z37.0 Single live birth; Z3A.40 40 weeks gestation of pregnancy; Z23 Encounter for immunization; O70.1 Second degree perineal laceration during delivery; D62 Acute posthemorrhagic anemia; O90.81 Anemia of the puerperium; R03.0 Elevated blood-pressure reading, without diagnosis of hypertension
CPT/HCPCS: 36415; 76815; 76819; 80053; 81001; 82565; 83615; 84450; 84460; 84550; 85007; 85014; 85018; 85025; 85027; 85049; 86592; 86850; 86900; 86901; 96360; 96365; G0378; J0290; J0360; J1580; J2405; J2590; J3010; J7120